=== PATIENT | female | born 1950 | race Caucasian/White ===

== ENCOUNTER → 2017-01-10 | Outpatient (CLI) | payer MEDICARE, OTHER ==
--- NOTE | ~2017-01-10 | CR63 ---
[facility] A Service of [facility] / [facility] RADIOLOGY TEXT RESULTS PATIENT: MIAH OG LOCATION: [facility] : 48 UNIT #: [id number] AGE: [address]: Amalia Jamison SEX: F ORDER DR: [id number] [facility] [address] [place], [place] [address] [id number] O MR#: [id number] Acc #: [id number] NAME: MIAH OG : 1950 SEX: F STUDY DATE/TIME: 01/10/2017 14:00 UNIT: [facility] ROOM: STUDY DESCRIPTION: CR Chest 2 View Attending Physician: Amalia Jamison A.P.R.N. Referring Physician: Amalia Jamison A.P.R.N. Ordering Physician: Amalia Jamison A.P.R.N. Primary Care Physician: Betzaida Sterling M.D. MEDICAL IMAGING REPORT This report is preliminary unless electronic signature is present EXAM PA and lateral chest INDICATION Productive cough and shortness of breath for 8 months. COMPARISON 02/11/2016 FINDINGS Stable scarring and volume loss within the right lung. Stable postoperative changes of the right lung. No acute-appearing infiltrate. Heart size is normal. Visualized osseous structures are unremarkable. IMPRESSION No active disease. Stable postoperative changes right lung. Dictated by... Umer Miranda M.D. THIS IS AN ELECTRONICALLY VERIFIED REPORT Umer Miranda M.D. at 01/11/2017 7:34 AM MABEL/john TD: 01/11/2017 05:21 JOB #: [id number] MEDICAL IMAGING REPORT Page 1 of 1 COPY
== END | disposition home or self-care (01) ==
LOC: CRAD 13:39
DX: R05 Cough (principal); Z98.890 Other specified postprocedural states
CPT/HCPCS: 71020